=== PATIENT | female | born 1955 | race Caucasian/White ===

== ENCOUNTER 2017-01-26 18:37 | Emergency (ER) | payer OTHER ==
[~2017-01-26] VITALS: Ht 160 cm; Wt 62.2 kg
[~2017-01-26 18:37] MED LIST: CHLO5CAP3; IBUP-238 PO; IBUP400T20; LORT5TAB PO; RANI150; TETR250C3
[2017-01-26 18:43] VITALS: BP 149/89; PULSE 100; RESP 16; TEMP 97.7; O2SAT 98
[2017-01-26] MEDS ORDERED: CYCLOBENZAPRINE HCL 10 MG TAB PO ONE (19:15)
--- NOTE | 2017-01-26 19:44 | RADRPT ---
EXAM DATE/TIME: 01/26/2017 19:25 [place] COMPARISON: No previous studies available for comparison. INDICATIONS : Right shoulder pain post fall. MEDICAL HISTORY : None. SURGICAL HISTORY : None. ENCOUNTER: Initial ACUITY: 4 - 6 days PAIN SCORE: 9/10 LOCATION: Right shoulder. FINDINGS: Multiple view examination of the right shoulder demonstrates no evidence of fracture or dislocation. The glenohumeral and acromioclavicular joints are maintained. There is normal range of motion betwe en internal and external rotation. Bony mineralization is normal. CONCLUSION: No acute fracture or joint dislocation. Alessandro Rodas MD on January 26, 2017 at 19:42 Board Certified Radiologist. This report was verified electronically.
[2017-01-26] MEDS ORDERED: predniSONE 20 MG TAB PO ONE (20:00)
[2017-01-26] MEDS ORDERED: KETOROLAC TROMETHAMINE 60 MG/2 ML (IM) VIAL IM ONE (20:00)
[2017-01-26] MEDS ORDERED: MEDR4PAK PO (20:07)
--- NOTE | 2017-01-26 20:07 | PD ---
HPI Chief Complaint: Fall Time Seen by Provider: 19:05 Travel History International Travel<30 days: No Contact w/Intl Traveler<30days: No Traveled to known affect area: No History of Present Illness HPI Patient is a 61 year old female who comes in complaining of right shoulder pain. She says she fell a few months ago on a boat onto her right shoulder and had pain then. She says she went to see a sports medicine doctor told her about her okay and prescribed naproxen for her. She says she was feeling better until 2 days ago when she started to have severe pain again. 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 She denies any direct trauma to the shoulder. Pain is worse with movement. She denies numbness or tingling. She denies chest pain or shortness of breath. PFSH Past Medical History ?: Not Ectopic : Yes Past Surgical History Appendectomy: Yes Gynecologic Surgery: Yes (LEFT OVARY REMOVED DUE TO EPTOPIC ) Tonsillectomy: Yes Social History Alcohol Use: Yes (OCCASIONAL) Tobacco Use: Yes Substance Use: No Allergies-Medications (Allergen,Severity, Reaction): Uncoded Allergies: SULFA-ITCHING, METAL-RASH, SOME TAPE-RASH (Allergy, Unknown, 02/05/03) Reported Meds & Prescriptions Reported Meds & Active Scripts Active Medrol Dosepak (Methylprednisolone) 4 Mg Dspk 4 Mg PO DIRECTED Per Pharmacist direction Motrin (Ibuprofen) 800 Mg Tab 1 Tab PO Q8 Lortab 5/500 (Acetaminophen/Hydrocodone Bitart) 5 Mg/500 Mg Tab 1 Tab PO Q6HPRN Reported Zantac (Ranitidine HCl) 150 Mg Tab Motrin (Ibuprofen) 400 Mg Tab Tetracycline HCl 250 Mg Cap Librium (Chlordiazepoxide) 5 Mg Cap Review of Systems General / Constitutional: No: Fever, Chills HENT: No: Headaches, Lightheadedness Cardiovascular: No: Chest Pain or Discomfort Respiratory: No: Shortness of Breath Gastrointestinal: No: Nausea, Vomiting Musculoskeletal: Positive: Pain, No: Edema Skin: No Rash, No Change in Pigmentation, No Lesions Neurologic: No: Paresthesia, Sensory Disturbance Physical Exam Narrative GENERAL: Awake and alert, in no acute distress. SKIN: Focused skin assessment warm/dry. HEAD: Atraumatic. Normocephalic. EYES: Pupils equal and round. No scleral icterus. ENT: No nasal bleeding or discharge. Mucous membranes pink and moist. CARDIOVASCULAR: Regular rate and rhythm. No murmur appreciated. RESPIRATORY: No accessory muscle use. Clear to auscultation. Breath sounds equal bilaterally. MUSCULOSKELETAL: No obvious deformities. No clubbing. No cyanosis. No edema. Pain with abduction of the right shoulder. Radial pulse intact. Tender to palpation of the right humeral head. No erythema or warmth of the joint. NEUROLOGICAL: Awake and alert. No obvious cranial nerve deficits. Motor grossly within normal limits. Normal speech. Data Data Last Documented VS Vital Signs Date Time Temp Pulse Resp B/P (MAP) Pulse Ox O2 Delivery O2 Flow Rate FiO2 01/26/17 18:43 97.7 100 16 149/89 (109) 98 Orders Orders Shoulder, Complete (>2vws) (01/26/17 ) Cyclobenzaprine (Flexeril) (01/26/17 19:15) Ketorolac Inj (Toradol Inj) (01/26/17 20:00) Prednisone (Deltasone) (01/26/17 20:00) MDM Medical Decision Making Medical Screen Exam Complete: Yes Emergency Medical Condition: Yes Differential Diagnosis Shoulder sprain versus fracture versus nerve impingement versus radiculopathy Narrative Course Patient is a 61-year-old female comes in complaining of right shoulder pain. Exam shows tenderness to palpation of the right humerus as well as pain with abduction of the right arm. Patient given Toradol and Flexeril. She is requesting a course of steroids. She'll be discharged with a prescription for Medrol Dosepak. She is advised follow-up with orthopedics. Advised to return to the ED as needed for any worsening symptoms. Diagnosis Primary Impression: Shoulder pain, right Qualified Codes: M25.511 - Pain in right shoulder Patient Instructions: General Instructions, Shoulder Pain (ED) Additional Instructions: Take the steroids starting tomorrow. Take ibuprofen or muscle relaxers as needed for pain. Follow-up with orthopedics. Return to the ED as needed for any worsening symptoms. Scripts Cyclobenzaprine (Flexeril) 10 Mg Tab 10 MG PO TID for Muscle Spasm, #15 TAB 0 Refills Prov: Janie Marcelino MD 01/26/17 Methylprednisolone Dosepak (Medrol Dosepak) 4 Mg Dspk 4 MG PO DIRECTED, #1 DSPK 0 Refills Per Pharmacist direction Prov: Janie Marcelino MD 01/26/17 Disposition: 01 DISCHARGE HOME Condition: Stable Janie Marcelino MD Jan 26, 2017 20:07
[2017-01-26] MEDS ORDERED: CYCL1TAB29 PO (20:22)
== END 2017-01-26 20:24 | disposition home or self-care (01) ==
LOC: PHEFT 18:37
DX: M25.511 Pain in right shoulder (principal)
CPT/HCPCS: 73030; 96372; 99284; J1885; J7512